=== PATIENT | female | born 1980 | race Caucasian/White ===

== ENCOUNTER 2023-11-30 16:20 | Emergency (ER) | payer OTHER, SELFPAY ==
[2023-11-30 16:34] VITALS: BP 152/88
--- NOTE | 2023-11-30 17:36 | ED.GENMED ---
History of Present Illness
General
Chief Complaint: Dental Problem
Source: patient
Exam Limitations: none
Time Seen by Provider: 11/30/23 17:16
Nursing documentation reviewed up to this point in time: agreed with
Travel History
Have you had any contact with someone who has COVID-19?: No
Do you have any symptoms of coronavirus? Fever > 100 degrees, chills, cough, shortness of breath, sore throat, loss of taste or smell, muscle aches, or headache?: No
History of Present Illness
History of Present Illness:
Patient to ED for eval of dental abscess. States she broke her tooth. SHe was seen by on Sunday and placed on augmentin. States pain and swelling continues to worsen. Brought self to ED for eval.
Past History
Past History
ED Past Medical History: GERD, Psychiatric (Anxiety, panic disorder, Depression, PTSD, Social anxiety, Racing thoughts,), Other (Chronic back pain, cellulitis right foot requiring 2 day hospitalization November 2014. gastroparesis, IBS) and Other
(Gastroparesis, IBS, GERD,)
ED Past Surgical History: and Gynecological (d and e)
Social History
Tobacco: Smoker
Alcohol: None
Drug: Marijuana
Personal: Single
Living: with family
Employment: Disabled
Family History
Family History: Other (Noncontributory)
Review of Systems
Review of Systems
Allergies reviewed?: Yes
All Other Systems: ROS reviewed and negative except as documented in HPI and ROS
Constitutional: Reports no symptoms
EENT: Reports other (left upper premolar broken. Large abscess present in gingiva)
ABD/GI: Reports no symptoms
Musculoskeletal: Reports no symptoms
Skin: Reports no symptoms
Psychiatric: Reports no symptoms
Phy Exam
General Physical Exam
General Presentation: well appearing and no apparent distress
General age: appears stated age
General Skin: warm and dry
General Habitus: normal
General Mental: alert
ENT Exam
ENT Exam: other (No trismus. Large abscess present on gingiva above proken upper left premolar. Lidocaine dental block given. Abscss drained with #11 blade. Drained a large amt of pus.)
Musculoskeletal Exam
Musculoskeletal Exam: full ROM
Skin Exam
Skin Exam: normal color and warm/dry
Psychiatric Exam
Psychiatric Exam: normal mood/affect
Course
Vital Signs
Initial and Last Documented VS:
Initial Vital Signs
Temp Pulse Resp BP Pulse Ox
98.9 F 121 22 152/88 97
11/30/23 16:34 11/30/23 16:34 11/30/23 16:34 11/30/23 16:34 11/30/23 16:34
Last Documented Vital Signs
Temp Pulse Resp BP Pulse Ox
98.9 F 121 22 152/88 97
11/30/23 16:34 11/30/23 16:34 11/30/23 16:34 11/30/23 16:34 11/30/23 16:34
Procedures
Dentalgia
Dental Block: Nerve Block
Bupivacaine 0.5%/Epi Dental cartridge administered?: Yes
Tooth Number: 12
Abcess drained?: Yes
Pt tolerated procedure well w/ no immediate adverse effects?: Yes
*Critical Care Note
Total Time (30-74mins, 75-104mins- exclusive of procedures): Not Applicable
ED Attending Note
-
Portions of this chart may have been created with voice recognition software.� Occasional wrong word or��sound alike� substitutions may have occurred due to the inherent limitations of voice recognition software.
Discharge Plan
Departure
Patient Disposition: Home (Routine Discharge)
Date of Disposition: 11/30/23
Time of Disposition: 17:34
Patient with high blood pressure during this ER visit?: No
Condition: Good
Covid-19: Not Applicable
Discharge Problem:
Dental abscess
Instructions: Tooth Abscess (DC)
Prescriptions:
No Action
ibuprofen 200 MG tablet
600 mg PO Q6HPRN PRN (Reason: mild pain/fever)
ibuprofen 600 MG tablet
600 mg PO Q6HPRN PRN (Reason: body aches) 0RF
quetiapine 200 MG tablet
200 mg PO DAILY Qty: 120 0RF
gabapentin 300 MG capsule
300 mg PO TID Qty: 90 0RF
escitalopram oxalate 10 MG tablet
10 mg PO DAILY Qty: 30 0RF
Activity Restrictions/Additional Instructions:
COntinue Antibiotic as prescribed. Warm salt water rinses after each meal. Follow up with you dentist on Sunday as planned. Return to the emergency department immediately for fever/chills, increasing pain/swelling, or for any further concerns.
Interventions
Interventions:
*Risk Screen - Suicide Last Done: 11/30/23 16:34
*General Assessment Last Done: 11/30/23 16:34
*Neglect/Abuse Screening Last Done: 11/30/23 16:34
Discharge Date and Time
Print Language: GREENLAND[place]
[2023-11-30 17:49] VITALS: BP 140/102
== END 2023-11-30 17:58 | disposition home or self-care (01) ==
LOC: EMR 16:20
PROVIDERS: EMERGENCY PHYSICIAN Emergency Medicine; FAMILY PHYSICIAN Family Medicine
DX: K04.7 Periapical abscess without sinus (principal)
CPT/HCPCS: 99284; 64400; 41800